=== PATIENT | male | born 1945 | race Caucasian/White ===

== ENCOUNTER 2017-04-03 19:05 | Emergency (ER) | payer OTHER ==
[2017-04-03 19:38] LABS: HEMATOCRIT 25.2 % (39.0-50.0); HEMOGLOBIN 8.5 g/dl (14.0-18.0); IMMATURE GRANULOCYTES 3.5 % (0.0-1.0); MEAN CELL VOLUME 98.4 fL CALC (80.0-100.0); MEAN CORPUSCULAR HGB 33.2 pG CALC (26.0-32.0); MEAN CORPUSCULAR HGB CONC 33.7 g/L CALC (32.0-36.0); NEUT# 12.16 thou/uL (1.82-7.42); RED BLOOD COUNT 2.56 mill/uL (4.70-6.10); RED CELL DISTRI WIDTH 16.1 % (11.5-15.5)
[2017-04-03 19:54] LABS: ALBUMIN 3.8 g/dL (3.2-5.0); BILIRUBIN, TOTAL 0.9 mg/dL (0.0-1.4); CALCIUM 8.6 mg/dL (8.4-10.2); CREATININE 3.6 mg/dL (0.7-1.3); TOTAL PROTEIN 5.5 g/dL (6.3-8.2)
[2017-04-03 21:09] LABS: URINE BILIRUBIN - DIPSTICK NEGATIVE (NEGATIVE); URINE BLOOD DIPSTICK MODERATE (NEGATIVE); URINE COLOR YELLOW; URINE GLUCOSE - DIPSTICK >=1000 mg/dL (NEGATIVE); URINE KETONE NEGATIVE (NEGATIVE); URINE LEUK ESTERASE NEGATIVE (NEGATIVE); URINE NITRITE - DIPSTICK NEGATIVE (Negative); URINE PH 5.5 (4.5-8.0); URINE PROTEIN - DIPSTICK NEGATIVE (NEG-TRACE); URINE UROBILINOGEN - DIPSTICK 0.2 E.U./dL (0.2)
[2017-04-03 21:10] LABS: URINE CLARITY CLEAR
[2017-04-03 21:12] LABS: BARBITURATES NEGATIVE (NEGATIVE); COCAINE NEGATIVE (NEGATIVE); METHADONE NEGATIVE (NEGATIVE); OXCYCODONE NEGATIVE (NEGATIVE); TETRAHYDROCANNABIONOL NEGATIVE (NEGATIVE); TRICYLIC ANTIDEPRESSANTS NEGATIVE (NEGATIVE)
[2017-04-03 21:17] LABS: URINE WBC 0-2 WBC/hpf (0-5)
[2017-04-03 21:27] LABS: INTERNATIONAL NORMALIZED RATIO 1.1 RATIO (0.7-1.3); PROTHROMBIN TIME 11.8 SECONDS (9.0-12.5)
[2017-04-03 23:01] VITALS: BP 136/66
== END 2017-04-03 23:17 | disposition short-term general hospital (02) | DRG 683 ==
LOC: ED 19:05
PROVIDERS: Emergency Medicine
PROC: 0T9B70Z Drainage of Bladder with Drainage Device, Via Natural or Artificial Opening (ICD-10-PCS; principal; 2017-04-03)
DX: N17.9 Acute kidney failure, unspecified (principal); E87.1 Hypo-osmolality and hyponatremia; M62.82 Rhabdomyolysis; E86.9 Volume depletion, unspecified; R10.84 Generalized abdominal pain; R79.89 Other specified abnormal findings of blood chemistry
CPT/HCPCS: S0164

== ENCOUNTER 2017-06-15 12:25 | Emergency (ER) | payer OTHER ==
[2017-06-15] MEDS ORDERED: TAMSULOSIN0.4 MG PO (13:07)
[2017-06-15 13:39] VITALS: BP 138/77
== END 2017-06-15 13:54 | disposition home or self-care (01) | DRG 696 ==
LOC: ED 12:25
PROC: 0T9B70Z Drainage of Bladder with Drainage Device, Via Natural or Artificial Opening (ICD-10-PCS; principal; 2017-06-15)
DX: R33.9 Retention of urine, unspecified (principal); I10 Essential (primary) hypertension; Z89.512 Acquired absence of left leg below knee

== ENCOUNTER 2020-06-13 | Emergency (ER) | payer OTHER ==
[~2020-06-13] MED LIST: TAMSULOSIN0.4 MG PO
[2020-06-13 18:52] LABS: MEAN CORPUSCULAR HGB 30.6 pG CALC (26.0-32.0); MEAN CORPUSCULAR HGB CONC 35.7 g/dL CAL (32.0-36.0); RED BLOOD COUNT 3.89 mill/uL (4.70-6.10); RED CELL DISTRI WIDTH 19.3 % (11.5-15.5)
[2020-06-13 18:59] LABS: ALBUMIN 3.1 g/dL (3.2-5.0); BILIRUBIN, TOTAL 0.9 mg/dL (0.0-1.4); BUN 46 mg/dL (8-23); LIPASE 285 u/l (23-300); SGOT/AST 38 u/l (19-48); TOTAL PROTEIN 6.3 g/dL (6.3-8.2)
[2020-06-13 19:00] LABS: HEMATOCRIT 33.3 % (39.0-50.0); HEMOGLOBIN 11.9 g/dl (14.0-18.0); IMMATURE GRANULOCYTES 3.4 % (0.0-5.0); MEAN CELL VOLUME 85.6 fL CALC (80.0-100.0); NEUT# 5.19 thou/uL (1.82-7.42)
[2020-06-13 19:10] LABS: ALKALINE PHOSPHATASE 188 u/l (38-126); ANION GAP 16 (6-22 (CALC)); BUN/CREATININE RATIO 35 (12-20 (CALC)); CARBON DIOXIDE 16 mmol/l (22-30); CHLORIDE 97 mmol/l (95-108); CREATININE 1.3 mg/dL (0.7-1.3); GFR 54 ML/MIN (>=60 (CALC)); GFR FOR AFR.AMER. > 60 ML/MIN (>=60 (CALC)); POTASSIUM 4.6 mmol/l (3.5-5.1); SODIUM 124 mmol/l (137-146)
[2020-06-13 21:26] LABS: ANION GAP 13 (6-22 (CALC)); BUN 43 mg/dL (8-23); BUN/CREATININE RATIO 35 (12-20 (CALC)); CARBON DIOXIDE 18 mmol/l (22-30); CHLORIDE 100 mmol/l (95-108); CREATININE 1.2 mg/dL (0.7-1.3); GFR 60 ML/MIN (>=60 (CALC)); GFR FOR AFR.AMER. > 60 ML/MIN (>=60 (CALC)); POTASSIUM 4.3 mmol/l (3.5-5.1); SODIUM 127 mmol/l (137-146)
[2020-06-13 22:21] LABS: URINE BILIRUBIN - DIPSTICK NEGATIVE (NEGATIVE); URINE BLOOD DIPSTICK NEGATIVE (NEGATIVE); URINE COLOR YELLOW; URINE GLUCOSE - DIPSTICK >=1000 mg/dL (NEGATIVE); URINE KETONE TRACE mg/dL (NEGATIVE); URINE LEUK ESTERASE NEGATIVE (NEGATIVE); URINE NITRITE - DIPSTICK NEGATIVE (Negative); URINE PROTEIN - DIPSTICK NEGATIVE (NEG-TRACE); URINE UROBILINOGEN - DIPSTICK 0.2 E.U./dL (0.2)
[2020-12-05] MEDS ORDERED: ASCORBIC ACD1000 MG PO (12:26)
[2020-12-05] MEDS ORDERED: ASPIRIN81 MG PO (12:27)
[2020-12-05] MEDS ORDERED: GABAPENTIN100 MG PO (12:27)
[2020-12-05] MEDS ORDERED: LIPITOR40 M1 PO (12:27)
[2020-12-05] MEDS ORDERED: KAPSPARGO SPRIN50 MG (12:28)
[2020-12-05] MEDS ORDERED: CONSTULOSE10 GM/15 M (12:28)
[2020-12-05] MEDS ORDERED: LASIX20 MG PO (12:28)
[2020-12-05] MEDS ORDERED: MULTIVITAMIN1 TA1 (12:28)
[2020-12-05] MEDS ORDERED: MELATONIN3 MG PO (12:28)
[2020-12-05] MEDS ORDERED: PROBIOTIC1 TAB PO (12:29)
[2020-12-05] MEDS ORDERED: ONDANSETRON4 MG PO (12:29)
[2020-12-05] MEDS ORDERED: NOVOLIN 70/30 INNLT SC (12:29)
[2020-12-05] MEDS ORDERED: OMEPRAZOLE DR40 MG (12:29)
[2020-12-05] MEDS ORDERED: SILDENAFIL50 MG (12:30)
[2020-12-05] MEDS ORDERED: TAMSULOSIN HCL0.4 MG PO (12:30)
== END 2020-06-14 08:00 | disposition home or self-care (01) | DRG 639 ==
PROVIDERS: Emergency Medicine; Family Medicine
DX: E11.65 Type 2 diabetes mellitus with hyperglycemia (principal); I10 Essential (primary) hypertension; Z95.1 Presence of aortocoronary bypass graft; Z95.5 Presence of coronary angioplasty implant and graft; Z89.512 Acquired absence of left leg below knee

== ENCOUNTER 2020-07-10 01:21 | Emergency (ER) | payer OTHER ==
[~2020-07-10] VITALS: Ht 175.3 cm; Wt 87.7 kg
[2020-07-10 01:57] LABS: HEMOGLOBIN 13.2 g/dl (14.0-18.0); IMMATURE GRANULOCYTES 0.6 % (0.0-5.0); MEAN CELL VOLUME 87.5 fL CALC (80.0-100.0); MEAN CORPUSCULAR HGB 28.9 pG CALC (26.0-32.0); NEUT# 4.06 thou/uL (1.82-7.42); RED BLOOD COUNT 4.57 mill/uL (4.70-6.10); RED CELL DISTRI WIDTH 16.2 % (11.5-15.5)
[2020-07-10 02:11] LABS: ALKALINE PHOSPHATASE 132 u/l (38-126); AMYLASE 56 u/l (30-110); BILIRUBIN, TOTAL 0.8 mg/dL (0.0-1.4); CHLORIDE 93 mmol/l (95-108); CREATININE 1.2 mg/dL (0.7-1.3); GFR 60 ML/MIN (>=60 (CALC)); GFR FOR AFR.AMER. > 60 ML/MIN (>=60 (CALC)); LIPASE 95 u/l (23-300); POTASSIUM 4.2 mmol/l (3.5-5.1); SGOT/AST 22 u/l (19-48); SODIUM 128 mmol/l (137-146)
[2020-07-10 02:15] LABS: ALBUMIN 4.1 g/dL (3.2-5.0); ANION GAP 14 (6-22 (CALC)); BUN 15 mg/dL (8-23); BUN/CREATININE RATIO 13 (12-20 (CALC)); CARBON DIOXIDE 25 mmol/l (22-30); TOTAL PROTEIN 7.9 g/dL (6.3-8.2)
[2020-07-10 02:20] LABS: D-DIMER 0.61 mg/L (0.19-0.60)
[2020-07-10 02:24] LABS: ACT PARTIAL THROMBO TIME 25.1 SECONDS (20.0-32.5); INTERNATIONAL NORMALIZED RATIO 1.1 RATIO (0.7-1.3); MYOGLOBIN 44 ng/mL (0 - 121); PROTHROMBIN TIME 10.7 SECONDS (9.0-12.5)
[2020-07-10] MEDS ORDERED: LORTAB5 PO (03:14)
[2020-07-10] MEDS ORDERED: VOLTAREN - GENE75 MG PO (03:14)
[2020-07-10 07:08] VITALS: BP 116/64
== END 2020-07-10 07:08 | disposition home or self-care (01) | DRG 195 ==
LOC: ED 01:21
PROVIDERS: Family Medicine
DX: R09.1 Pleurisy (principal); E11.65 Type 2 diabetes mellitus with hyperglycemia; I10 Essential (primary) hypertension; Z95.1 Presence of aortocoronary bypass graft; Z95.5 Presence of coronary angioplasty implant and graft; Z89.512 Acquired absence of left leg below knee

== ENCOUNTER 2020-07-20 20:03 | Emergency (ER) | payer OTHER ==
[~2020-07-20] VITALS: Ht 175.3 cm; Wt 87.7 kg
[~2020-07-20 20:03] MED LIST changes: +LORTAB5 PO; +VOLTAREN - GENE75 MG PO
[2020-07-20 20:39] LABS: HEMATOCRIT 36.9 % (39.0-50.0); HEMOGLOBIN 11.7 g/dl (14.0-18.0); IMMATURE GRANULOCYTES 2.9 % (0.0-5.0); MEAN CELL VOLUME 88.9 fL CALC (80.0-100.0); MEAN CORPUSCULAR HGB 28.2 pG CALC (26.0-32.0); MEAN CORPUSCULAR HGB CONC 31.7 g/dL CAL (32.0-36.0); NEUT# 7.77 thou/uL (1.82-7.42); RED BLOOD COUNT 4.15 mill/uL (4.70-6.10); RED CELL DISTRI WIDTH 15.2 % (11.5-15.5)
[2020-07-20 20:55] LABS: INTERNATIONAL NORMALIZED RATIO 1.1 RATIO (0.7-1.3); PROTHROMBIN TIME 11.3 SECONDS (9.0-12.5)
[2020-07-20 20:57] LABS: ALBUMIN 3.4 g/dL (3.2-5.0); ALKALINE PHOSPHATASE 157 u/l (38-126); ANION GAP 15 (6-22 (CALC)); BUN 26 mg/dL (8-23); BUN/CREATININE RATIO 19 (12-20 (CALC)); CARBON DIOXIDE 20 mmol/l (22-30); CHLORIDE 97 mmol/l (95-108); CREATININE 1.4 mg/dL (0.7-1.3); GFR 50 ML/MIN (>=60 (CALC)); GFR FOR AFR.AMER. 60 ML/MIN (>=60 (CALC)); SGOT/AST 29 u/l (19-48); SODIUM 127 mmol/l (137-146)
[2020-07-20 21:01] LABS: BILIRUBIN, TOTAL 0.4 mg/dL (0.0-1.4)
[2020-07-20 21:10] LABS: MYOGLOBIN 40 ng/mL (0 - 121)
[2020-07-20 22:47] VITALS: BP 142/68
== END 2020-07-20 22:41 | disposition short-term general hospital (02) | DRG 948 ==
LOC: ED 20:03
PROVIDERS: Family Medicine
DX: R41.82 Altered mental status, unspecified (principal); E11.65 Type 2 diabetes mellitus with hyperglycemia; I10 Essential (primary) hypertension; Z95.1 Presence of aortocoronary bypass graft; Z95.5 Presence of coronary angioplasty implant and graft; Z89.512 Acquired absence of left leg below knee

== ENCOUNTER 2020-10-28 20:55 | Inpatient (IN) | payer OTHER, MEDICARE ==
[~2020-10-28] VITALS: Ht 175.3 cm; Wt 86.0 kg
--- NOTE | 2020-10-28 20:55 | NUR ---
PT TO ER BED 8 VIA EMS AT THIS TIME FOR TRIAGE AND EXAM.
--- NOTE | 2020-10-28 21:00 | NUR ---
PT. WITH C/O HAVING UPPER ABD. PAIN X 2 DAYS. PT. DIAPHORETIC. ABD. SOFT WITH HYPOACTIVE BOWEL SOUNDS.
--- NOTE | 2020-10-28 22:00 | NUR ---
PT. GIVEN IV PAIN MEDS PER MD WITH SLIGHT RELIEF.
[2020-10-28 22:33] LABS: ALBUMIN 3.8 g/dL (3.2-5.0); CREATININE 1.8 mg/dL (0.7-1.3); POTASSIUM 4.7 mmol/l (3.5-5.1); TOTAL PROTEIN 7.8 g/dL (6.3-8.2)
[2020-10-28 22:35] LABS: BILIRUBIN, TOTAL 0.7 mg/dL (0.0-1.4)
--- NOTE | 2020-10-28 22:42 | NUR ---
PT. RESP. 46 BP 89/50 HR 137, AWARE.
[2020-10-28 22:43] LABS: HEMATOCRIT 48.9 % (39.0-50.0); HEMOGLOBIN 14.1 g/dl (14.0-18.0); IMMATURE GRANULOCYTES 2.3 % (0.0-5.0); MANUAL DIFFERENTIAL YES; MEAN CELL VOLUME 85.9 fL CALC (80.0-100.0); MEAN CORPUSCULAR HGB 24.8 pG CALC (26.0-32.0); MEAN CORPUSCULAR HGB CONC 28.8 g/dL CAL (32.0-36.0); PLATELET COUNT 653 thou/uL (130-400); RED BLOOD COUNT 5.69 mill/uL (4.70-6.10); RED CELL DISTRI WIDTH 18.1 % (11.5-15.5)
[2020-10-28 22:48] LABS: BAND 5 % (0-8); PLATELET ESTIMATE MARKED INCREASE
--- NOTE | 2020-10-28 23:00 | NUR ---
ATTEMPTED TO INSERT CENTRAL LINE WITHOUT SUCCESS. PT. TOLERATED WELL. 2 ND PERIPHERAL IV SITE STARTED TO LAC, IVF 2ND BAG STARTED. MYERS CATH INSERTED, PT. TOLERATED WELL, PATIENT AND DRAINING CLEAR BECKY URINE,
[2020-10-29] VITALS (15 sets, daily range): BP systolic 83–118; BP diastolic 55–71
--- NOTE | 2020-10-29 00:36 | NUR ---
V/S NOW STABLE HR 111 RESP 26 BP 105/57 O2 SAT 94% ON 2 LIT/NC. MD AWARE.
--- NOTE | 2020-10-29 00:57 | NUR ---
PT. MADE AWARE THAT HE WILL BE GOING TO THE OR THIS AM. VERBALIZED UNDERSTANDING. PT. CEDRIC CALLED AND INFORMED THAT HE WILL BE GOING TO THE OR THIS AM, VERBALIZED UNDERSTANDING.
[2020-10-29 01:04] LABS: URINE BILIRUBIN - DIPSTICK NEGATIVE (NEGATIVE); URINE BLOOD DIPSTICK SMALL (NEGATIVE); URINE COLOR YELLOW; URINE GLUCOSE - DIPSTICK NEGATIVE (NEGATIVE); URINE KETONE NEGATIVE (NEGATIVE); URINE LEUK ESTERASE NEGATIVE (NEGATIVE); URINE PROTEIN - DIPSTICK TRACE mg/dL (NEG-TRACE); URINE SPECIFIC GRAVITY 1.015; URINE UROBILINOGEN - DIPSTICK 0.2 E.U./dL (0.2)
[2020-10-29 01:05] LABS: URINE NITRITE - DIPSTICK NEGATIVE (Negative)
[2020-10-29 01:13] LABS: URINE BACTERIA FEW hpf; URINE SQUAMOUS EPITHELIAL CELL FEW EPI/hpf (0-FEW); URINE WBC 0-2 WBC/hpf (0-5)
--- NOTE | 2020-10-29 01:51 | NUR ---
PT. TAKEN TO OR VIA STRETCHER, NO C/O PAIN OR DISCOMFORT OFFERED.
--- NOTE | 2020-10-29 05:30 | NUR ---
PT RECEIVED FROM PACU AT THIS TIME. REPORT RECEIVED AT BEDSIDE FROM PACU NURSE ASHLEEN. Aide FLORES VP DESIGN IN ROOM SETTING UP VENT.
--- NOTE | 2020-10-29 06:42 | NUR ---
PT PLACED ON SBT PER PT ON NO SEDATION AT THIS TIME. ALL MECHANICS ON SBT ARE WNL. ALL RESPIRATORY MEASURMENTS ARE WNL. TRAVEL PROFESSIONAL TO MONITOR.
--- NOTE | 2020-10-29 07:00 | NUR ---
ASSUMED CARE OF PT DURING BEDSIDE REPORT, PT HYPOTENSIVE, AND INTUBATED. [address], PT ON VS MONITOR, SCD ON RIGHT LEG, LEFT BKA, ABDOMINAL BINDER IN PLACE OVER SURGICAL SITE, MEDS INFUSING INTO L TRIPLE LUMAN. YEMI TITRATED TO 2.5MCS/KG/HR FOR HYPOTENSION. PT PLACE ON SBT BY RT, PT HAS NO SEDATION INFUSING.
[2020-10-29] MEDS ORDERED: OXYCODONE5 M1 PO (08:23)
--- NOTE | 2020-10-29 09:20 | NUR ---
PT EXTUBATED PER MD ORDER, NO DISTRESS NOTED, PT TOLERATING NC WELL.
--- NOTE | 2020-10-29 09:43 | NUR ---
0920 EXTUBATED PT PER MD ORDER. PLACED ON 10 L HFNC. PT TO LWEL AT THIST [facility]. APPLICATION SECURITY CONSULTANT TO MONITOR.
[2020-10-29 09:53] LABS: HEMATOCRIT 39.1 % (39.0-50.0); IMMATURE GRANULOCYTES 2.9 % (0.0-5.0); MEAN CELL VOLUME 89.5 fL CALC (80.0-100.0); MEAN CORPUSCULAR HGB 25.2 pG CALC (26.0-32.0); MEAN CORPUSCULAR HGB CONC 28.1 g/dL CAL (32.0-36.0); PLATELET COUNT 381 thou/uL (130-400); RED BLOOD COUNT 4.37 mill/uL (4.70-6.10)
[2020-10-29 09:54] LABS: BAND 25 % (0-8); MANUAL DIFFERENTIAL YES
[2020-10-29 09:55] LABS: VACULATED NEUTROPHILS MARKED
[2020-10-29 10:08] LABS: AMYLASE 42 u/l (30-110); BUN 32 mg/dL (8-23); BUN/CREATININE RATIO 24 (12-20 (CALC)); CARBON DIOXIDE 12 mmol/l (22-30); CREATININE 1.3 mg/dL (0.7-1.3); GFR 54 ML/MIN (>=60 (CALC)); GFR FOR AFR.AMER. > 60 ML/MIN (>=60 (CALC)); LIPASE 20 u/l (23-300); MAGNESIUM 1.8 mg/dL (1.6-2.3); POTASSIUM 4.7 mmol/l (3.5-5.1); SODIUM 131 mmol/l (137-146)
[2020-10-29 10:10] LABS: ALBUMIN 1.8 g/dL (3.2-5.0); ALKALINE PHOSPHATASE 158 u/l (38-126); ANION GAP 15 (6-22 (CALC)); BILIRUBIN, TOTAL 0.4 mg/dL (0.0-1.4); CHLORIDE 109 mmol/l (95-108); SGOT/AST 169 u/l (19-48); TOTAL PROTEIN 4.3 g/dL (6.3-8.2)
--- NOTE | 2020-10-29 12:00 | NUR ---
PT LEVO TITRATED TO 20MCG/MIN, YEMI TIRATED OFF PER MD. PT A AND OX3, MEDICATED PER EMAR FOR PAIN. PT STATES HAVING SEEDS PLACED FOR LIVER CA AT [facility] IN [place] BY IN [place].
--- NOTE | 2020-10-29 14:35 | NUR ---
PT IS A 74 YOM WHO PRESENTS WITH PERITONITIS AND PERFORATED ABDOMINAL VISCUS. HE IS UNABLE TO PROVIDE PMH OR LIST OF HOME MEDS, BUT CURRENT INPATIENT MEDS HAVE BEEN REVIEWED. SCR 1.8 MG/DL, CRCL 42.5 ML/MIN, HT 69 IN, WT 81 KG VANCOMYCIN ORDERED FOR PHARMACY TO DOSE. START VANCOMYCIN 1250MG IV Q24H. CHECK TROUGH 30 MIN PRIOR TO 4TH DOSE ON 11/01 @ 0830. PHARMACY WILL CONTINUE TO FOLLOW AND ADVISE NEEDED.
[2020-10-29] MEDS ORDERED: LISINOPRIL10 MG PO (14:42)
[2020-10-29] MEDS ORDERED: NORVASC5 M1 PO (14:43)
[2020-10-29] MEDS ORDERED: TAMSULOSIN0.4 MG PO (14:43)
[2020-10-29] MEDS ORDERED: NOVOLIN 70/30 SC (14:44)
--- NOTE | 2020-10-29 17:43 | NUR ---
UPDATED PT STEP DAUGHTER FROM [place] WHO PROVIDED CODE
--- NOTE | 2020-10-29 18:45 | NUR ---
JUICE DRAIN 1 DRAINING DARK BROWN LIQUID JUICE DRAIN 2 DRAINING DARK YELLOW FLUID JUICE DRAIN 3 DRAINING DARK YELLOW FLUID AMOUNTS OUT IN I AND O
--- NOTE | 2020-10-29 19:00 | NUR ---
REPORT RECEIVED FROM Abbey COTA RN, CARE OF PT ASSUMED AT THIS TIME.
--- NOTE | 2020-10-29 19:45 | NUR ---
PT LAYING IN BED SEMI-FOWLERS. A/OX3 AND DROWSY. L-IJ TLC INFUSING LEVOPHED, D51/2NS. DRESSING C/D/I. PATENT. POSITIVE BLOOD RETURN. L-AIXA ODONNELL-JIM NGT SECURE, CONNECTED TO LIS. DARK BROWN GASTRIC CONTENT NOTED. OUTPUT MINIMAL. NSR 90S AFEBRILE SPO2 93% RESPIRATIONS REGULAR AND UNLABORED. ABD BINDER SECURED. X3 JUICE DRAINS. JPs EMPTIED. JUICE #1 200ML DARK BROWN THIN LIQUID, SUSPECT IODINE FROM IRRIGATION. JUICE#2 100ML SEROUS, PINK TINGED. JUICE#3 50ML SEROUS, PINK TINGED. RLE SCD, L BKA. PLAN OF CARE REVIEWED. PT VERBALIZES UNDERSTANDING DENIES QUESTIONS. DENIES NEEDS AT THIS TIME. CALL HAQ WITHIN REACH, AGREES TO CALL PRN.
--- NOTE | 2020-10-29 20:10 | NUR ---
blood drawn & sent to lab.
--- NOTE | 2020-10-29 20:10 | NUR ---
LACTIC ACID LEVEL DRAWN VIA TLC BY Osmar PARIKH LPN.
--- NOTE | 2020-10-29 20:51 | NUR ---
LACTIC LEVEL RESULTS CALLED TO UNIT BY Maira DOUGHERTY IN LAB. LEVEL IS 4.4. PREVIOUS LEVEL WAS 4.
--- NOTE | 2020-10-29 21:32 | NUR ---
DR. GALDAMEZ MADE AWARE OF MOST RECENT LACTIC LEVEL OF 4.4. REPEAT LACTIC IN AM. NO FURTHER ORDERS RECEIVED.
--- NOTE | 2020-10-29 21:46 | NUR ---
CALL RECEIVED FROM INDIVIDUAL WHO IDENTIFIES SELF PT'S . CALLER PROVIDES CORRECT COMMUNICATION CODE. UPDATE ON PT'S STATUS PROVIDED. QUESTIONS ANSWERED TO CALLERS SATISFACTION.
[2020-10-30] VITALS (22 sets, daily range): BP systolic 85–139; BP diastolic 51–82
--- NOTE | 2020-10-30 | NUR ---
PT APPEARS TO BE SLEEPING COMFORTABLY. NO APPARENT DISTRESS. VSS ON MONITOR. CALL HAQ REMAINS WITHIN REACH.
--- NOTE | 2020-10-30 02:00 | NUR ---
PT APPEARS TO BE SLEEPING COMFORTABLY. NO APPARENT DISTRESS. VSS ON MONITOR. CALL HAQ REMAINS WITHIN REACH.
--- NOTE | 2020-10-30 04:00 | NUR ---
PT APPEARS TO BE SLEEPING COMFORTABLY. NO APPARENT DISTRESS. VSS ON MONITOR. CALL HAQ REMAINS WITHIN REACH.
--- NOTE | 2020-10-30 05:00 | NUR ---
AM LABS COLLECTED VIA TLC.
--- NOTE | 2020-10-30 05:30 | NUR ---
PT COOL TO TOUCH. SHIVERING. ORAL TEMP 96. TEE HUGGER APPLIED.
[2020-10-30 05:42] LABS: ALBUMIN 1.7 g/dL (3.2-5.0); ALKALINE PHOSPHATASE 166 u/l (38-126); BUN 27 mg/dL (8-23); BUN/CREATININE RATIO 21 (12-20 (CALC)); CHLORIDE 108 mmol/l (95-108); CREATININE 1.3 mg/dL (0.7-1.3); GFR 54 ML/MIN (>=60 (CALC)); GFR FOR AFR.AMER. > 60 ML/MIN (>=60 (CALC)); MAGNESIUM 1.9 mg/dL (1.6-2.3); POTASSIUM 4.7 mmol/l (3.5-5.1); SGOT/AST 263 u/l (19-48); SODIUM 130 mmol/l (137-146)
[2020-10-30 05:50] LABS: ANION GAP 12 (6-22 (CALC)); BILIRUBIN, TOTAL 0.2 mg/dL (0.0-1.4); CARBON DIOXIDE 15 mmol/l (22-30)
[2020-10-30 05:51] LABS: HEMATOCRIT 34.2 % (39.0-50.0); HEMOGLOBIN 10.1 g/dl (14.0-18.0); IMMATURE GRANULOCYTES 1.4 % (0.0-5.0); MEAN CELL VOLUME 86.1 fL CALC (80.0-100.0); MEAN CORPUSCULAR HGB 25.4 pG CALC (26.0-32.0); MEAN CORPUSCULAR HGB CONC 29.5 g/dL CAL (32.0-36.0); NEUT# 18.41 thou/uL (1.82-7.42); RED BLOOD COUNT 3.97 mill/uL (4.70-6.10)
--- NOTE | 2020-10-30 06:12 | NUR ---
JUICE #1 150ML BROWN THIN OUTPUT, SUSPECT IODINE MIXED WITH BLOOD. JUICE #2 100ML YELLOW, PINK TINGED JUICE #3 35ML YELLOW, PINK TINGED NGT 50ML DARK BROWN OUTPUT MYERS 50ML YELLOW WITH SEDIMENT.
--- NOTE | 2020-10-30 06:15 | NUR ---
PT C/O OF BEING TO WARM. OFFER TO REDUCE TEMP ON TEE HUGGER. PT REQUEST IT BE TURNED OFF. TEE HUGGER TURNED OFF AT THISTIME.
--- NOTE | 2020-10-30 06:43 | NUR ---
PT IS ON 3 LITER NASAL CANNULA WITH SATS OF 94%.
--- NOTE | 2020-10-30 07:20 | NUR ---
pt awake in bed; no apparent distress noted; assessment completed at this time; pt alert and oriented; admits to pain rating 7/10; will medicate; no n/v noted per commercial insurance underwriter; resp even and unlabored; lungs clear; skin color wnl; o2 per nc at 4L; prod cough noted; pt self suctioning with yankeur; hr reg; weak right pedal pulses; left bka; skin color pale; st on monitor; abd soft with bs present; no bm noted per commercial insurance underwriter; zafar to gravity draining clear dk yellow urine; ng tube intact to right nare to lcs; brown gastric output noted; cath strap intact; #20 to lac saline locked; TLC patent to left subclav with ivf/ levophed gtt at 20mcg/min; no redness or edema noted at sites; abd dressing cdi; unable to assess wound; JUICE x 2 left abd, JUICE x1 right abd; JPs stripped and drained; JUICE drain #1 with brownish/orangee/red drainage; JUICE #2 and # with clouldy serosang; abd binder reapplied; scds to rle; repositioned; call light within reach; will continue to monitor
--- NOTE | 2020-10-30 08:15 | NUR ---
resting in bed with eyes closed; no apparent distress noted; st on monitor; call light within reach; will continue to monitor
--- NOTE | 2020-10-30 09:00 | NUR ---
Dr Peña present at bedside to assess pt and discuss plan of care
--- NOTE | 2020-10-30 10:02 | NUR ---
resting in bed with eyes closed; no apparent distress noted; iv intact and patent; sr on monitor; zafar to gravity; call light within reach; will continue to monitor
--- NOTE | 2020-10-30 10:19 | NUR ---
PT REMAINS ON 3 LITER NC, WITH SATS MAINTAINING AT 94%.
--- NOTE | 2020-10-30 10:59 | NUR ---
spouse called this advertising copy writer; passcode verified; update provided
--- NOTE | 2020-10-30 12:03 | NUR ---
resting in bed with eyes closed; no apparent distress noted; pt with complaints of pain; will medicate; zafar to gravity; iv intact; levophed gtt at 20mcg/min; sr on monitor; dressing changed to TLC site; will continue to monitor
--- NOTE | 2020-10-30 12:08 | NUR ---
CENTRAL LINE DRESSING CHANGED USING ASEPTIC TECHNIQUE. PT TOLERATED WELL. DRESSING INITIALED, DATED AND TIMED. NO OTHER NEEDS AT THIS TIME. CALL LIGHT WITHIN REACH.
--- NOTE | 2020-10-30 12:40 | NUR ---
DR SWIFT AT BEDSIDE DISCUSSING POC
--- NOTE | 2020-10-30 14:10 | NUR ---
resting with eyes closed; no apparent distress noted; sron monitor; zafar to gravity; levophed continue; call light within reach; will continue to monitor
--- NOTE | 2020-10-30 16:15 | NUR ---
awake in bed; tolerating ice chips; JPs stripped and drained; pt to be medicated for complaints of pain; abd dressing cdi; abd binder reinforced; levophed gtt cont at 20mcg/min; zafar to gravity; will continue to monitor
--- NOTE | 2020-10-30 17:58 | NUR ---
awake in bed; repositioned; no apparent distress noted noted; zafar to gravity; sr on monitor; o2 per nc; call light within reach
--- NOTE | 2020-10-30 19:45 | NUR ---
awakens easily then c/o op pain. abd dressing cdi. abd binder conts. alexandru x3 in place. playground monitor shows sinus tach 101. ivf cont to tlc. zafar cath in place. urine clear yellow. scds cont. turned & repositioned with MUCH encouragement. sx self. fall precautions cont. medicated for pain as ordered.
--- NOTE | 2020-10-30 22:00 | NUR ---
turned & repositioned. anamaria fair. cardiac monitor technician shows sinus tach 110.
[2020-10-31] VITALS (51 sets, daily range): BP systolic 95–161; BP diastolic 60–90
--- NOTE | 2020-10-31 00:16 | NUR ---
eyes closed. no apparent distress. ivf infusing well.
--- NOTE | 2020-10-31 02:00 | NUR ---
resting quietly. no apparent distress.
--- NOTE | 2020-10-31 04:00 | NUR ---
eyes closed. no distress.
--- NOTE | 2020-10-31 05:15 | NUR ---
medicated for pain as ordered. needs MUCH encouragement to assist with care.
[2020-10-31 06:02] LABS: HEMATOCRIT 31.8 % (39.0-50.0); HEMOGLOBIN 9.3 g/dl (14.0-18.0); MEAN CELL VOLUME 88.1 fL CALC (80.0-100.0); MEAN CORPUSCULAR HGB 25.8 pG CALC (26.0-32.0); MEAN CORPUSCULAR HGB CONC 29.2 g/dL CAL (32.0-36.0); NEUT# 12.72 thou/uL (1.82-7.42); RED BLOOD COUNT 3.61 mill/uL (4.70-6.10)
[2020-10-31 06:22] LABS: ALBUMIN 1.6 g/dL (3.2-5.0); ALKALINE PHOSPHATASE 162 u/l (38-126); ANION GAP 10 (6-22 (CALC)); BUN 25 mg/dL (8-23); BUN/CREATININE RATIO 21 (12-20 (CALC)); CARBON DIOXIDE 14 mmol/l (22-30); CHLORIDE 111 mmol/l (95-108); CREATININE 1.2 mg/dL (0.7-1.3); GFR 60 ML/MIN (>=60 (CALC)); GFR FOR AFR.AMER. > 60 ML/MIN (>=60 (CALC)); MAGNESIUM 1.8 mg/dL (1.6-2.3); POTASSIUM 4.5 mmol/l (3.5-5.1); SGOT/AST 89 u/l (19-48); SODIUM 131 mmol/l (137-146)
[2020-10-31 06:29] LABS: BILIRUBIN, TOTAL 0.3 mg/dL (0.0-1.4)
--- NOTE | 2020-10-31 07:05 | NUR ---
REPORT RECEIVED FROM JOZEFRN
--- NOTE | 2020-10-31 08:09 | NUR ---
PT ON 3 LITER NASAL CANNULA, SATS 94%
--- NOTE | 2020-10-31 08:29 | NUR ---
AT BEDSIDE DISCUSSING POC.
--- NOTE | 2020-10-31 08:40 | NUR ---
PT RESTING IN SUPINE POSITION,A&O X3;VS OBTAINED AND ASSESSMENT COMPLETED;PT DENIES ANY CURRENT PAIN OR DISCOMFORTS,PAIN SCALE AND REPORTING EDUCATED;PT POD #2;RESPIRATIONS EVEN AND UNLABORED ON O2 @ 4L VIA NC,CLEAR/DIMINISHED LUNG SOUNDS;ABDOMEN DISTENDED/SOFT ON PALPATION AND HYPOACTIVE IN ALL 4 QUADRANTS;DRESSING TO MIDLINE INCISIONS CDI WITH X3 JUICE DRAINS NOTED AND ABDOMINAL BINDER IN PLACE;LEFT TRIPLE LUMEN INFUSING NS @ 150ML/HR AND LEVOPHED @ 75CC/HR;WEAK PEDAL PULSE, PT LEFT BKA; SCD NOTED TO RIGHT LEG;ACCUCHECK 151;NPO DIET WITH ICE CHIPS PROVIDED;PT DENIES ANY ADDITIONAL NEEDS AND IS ENCOURAGED TO CALL FOR ASSISTANCE IF NEEDED;FALL PRECAUTIONS IN PLACE WITH BED IN THE LOWEST POSITION AND CALL LIGHT IN REACH;WILL CONTINUE TO MONITOR
--- NOTE | 2020-10-31 08:51 | NUR ---
AT BEDSIDE DISCUSSING POC.
--- NOTE | 2020-10-31 10:40 | NUR ---
PT RESTING IN SEMI FOWLERS POSITION;RESPIRATIONS EVEN AND UNLABORED ON O2 @ 3L VIA NC;PT REPORTS ABDOMINAL PAIN RATING 9/10 ON THE PAIN SCALE AND REQUESTS PRN PAIN MEDICATION, PT MEDICATED WITH PRN DILAUDID 1MG SLOW IVP;PT BP 158/81 AND LEVOPHED TITRATED AT THIS TIME, VS REMAINS Q15 MINS PER PROTOCAL;CARDIAC MONITORING IN PLACE;PT DENIES ANY ADDITIONAL NEEDS;ENCOURAGED TO CALL FOR ASSISTANCE IF NEEDED;CALL LIGHT IN REACH;WILL CONTINUE TO MONITOR
--- NOTE | 2020-10-31 12:00 | NUR ---
PT RESTING IN SEMI FOWLERS POSITION RECEIVING BED BATH FROM LOFTSMAN;RESPIRATIONS EVEN AND UNLABORED ON O2 @ 3L VIA NC;ABDOMINAL BINDER AND DRESSINGS REMAIN IN PLACE;JUICE X3 EMPTIED AT THIS TIME;MYERS CATHETER IN PLACE;LEFT TL INFUSING NS AND LEVOPHED WITH EASE;PT TO BE RE-POSITIONED INTO RECLINER;ACCUCHECK 177, PT COVERED WITH SLIDING SCALE INSULIN PER ORDER;PT DENIES ANY ADDITIONAL NEEDS;CALL LIGHT IN REACH;WILL CONTINUE TO MONITOR
--- NOTE | 2020-10-31 12:46 | NUR ---
LEVOPHED GTT TITRATED TO 17MCG/MIN,WILL CONTINUE TO MONITOR
--- NOTE | 2020-10-31 15:00 | NUR ---
PT OOB RESTING IN RECLINER;PT REPORTS ABDOMINAL PAIN RATING 9/10 ON THE PAIN SCALE AT AND REQUESTS PRN PAIN MEDICATION,PT MEDICATED WITH PRN DILAUDID 1MG SLOW IVP;CARDIAC MONITORING IN PLACE;NS D/C PER ORDER;TPN AND LIPIDS STARTED PER ORDER TO LEFT SUBCLAVIAN;LEVO DRIP GTT TITRATED TO 15MCG/MIN;PT DENIES ANY ADDITIONAL NEEDS AND IS ENCOURAGED TO CALL FOR ASSISTANCE IF NEEDED;CALL LIGHT IN REACH;WILL CONTINUE TO MONITOR
--- NOTE | 2020-10-31 16:20 | NUR ---
PT RE-POSIITONED BACK INT BED WITH X2 ASSIST;RESPIRATIONS REMAIN EVEN AND UNLABORED ON O2 @ 3L VIA NC;ABDOMINAL BINDER AND DRESSINGS IN PLACE;X3 JUICE DRAINS PATENT;MYERS CATHETER DRAINING TO GRAVITY WITH EASE;LEFT TL INFUSING TPN, LIPIDS AND LEVO PER ORDER;PT DENIES ANY ADDITIONAL NEEDS;ENCOURAGED TO CALL FOR ASSISTANCE IF NEEDED;CALL LIGHT IN REACH;WILL CONTINUE TO MONITOR
--- NOTE | 2020-10-31 17:50 | NUR ---
PT RESTING IN SEMI FOWLERS POSITION;RESPIRATIONS EVEN AND UNLABORED ON O2 @ 3L VIA NC;PT REPORTS ABDOMINAL PAIN RATING 10/10 ON THE PAIN SCALE, PT MEDICATED WITH PRN DILAUDID 1MG SLOW IVP;ACCUCHECK 284, PT COVERED WITH SLIDING SCALE INSULIN PER ORDER;MYERS CATHETER REMAINS PATENT DRAINING TO GRACITY WITH EASE;LEFT SUBCLAVIAN TL INFUSING TPN @ 84.0, LIPIDS @ 21.0, AND LEVO AT 9MCG/MIN;X3 JUICE DRAINS EMPTIED AT THIS TIME, INCISIONAL SITE WELL APPROX WITH CDI DRESSING; PT ENCOURAGED TO CALL FOR ASSISTANCE IF NEEDED;CALL LIGHT IN REACH;WILL CONTINUE TO MONITOR
--- NOTE | 2020-10-31 19:10 | NUR ---
REPORT GIVEN BY AMIE. PATIENT IS ALERT AND OREINTED X 4. RESP EVEN AND UNLABORED, 3L O2 VIA NC. L SUBCLAVIAN TLC INFUSING LEVO, TPN, AND LIPIDS. MYERS DRAINING CLEAR, YELLOW URINE. MIDLINE INCISION CDI, 3 JUICE DRAININS PRESENT AND ABD BINDER. DIET NPO WITH ICE CHIPS. PLAN OF CARE DISCUSSED. PATIENT INFORMED TO CALL WITH ANY QUESTIONS OR CONCERNS. FALL AND SAFTEY PRECAUTIONS IN PLACE.
--- NOTE | 2020-10-31 20:45 | NUR ---
LEVOPHED TITRATED FROM 7 MCG TO 5 MCG FOR SBP 161
--- NOTE | 2020-10-31 21:26 | NUR ---
LEVOPHED TITRATED FROM 5 MCG/MIN TO 3 MCG/MIN FOR BP OF 149/80
--- NOTE | 2020-10-31 22:44 | NUR ---
PATIENT REMOVED CPAP, HE STATES HE DOESN'T KNOW WHY
--- NOTE | 2020-10-31 22:45 | NUR ---
PATIENT RESTING WITH EYES LOSED. RESP EVEN AND UNLABORED. NO S/S OF DISTRESS NOTED. FALL AND SAFTEY PRECAUTIONS IN PLACE.
[2020-11-01] VITALS (20 sets, daily range): BP systolic 98–148; BP diastolic 7–81
--- NOTE | 2020-11-01 00:44 | NUR ---
PATIENT REQUESTING PAIN MEDICATIONS, MEDICATED PER MD ORDERS.
--- NOTE | 2020-11-01 01:51 | NUR ---
NEW BAG OF TPN HUNG
--- NOTE | 2020-11-01 03:08 | NUR ---
PATIENT REQUESTING PAIN MEDICATION, MEDICATED PER MD ORDERS
--- NOTE | 2020-11-01 04:45 | NUR ---
LEVOPHED TITRATED FROM 3 MCG/MIN TO 2 MCG/MIN FOR BP 143/70
[2020-11-01 05:35] LABS: HEMATOCRIT 30.6 % (39.0-50.0); HEMOGLOBIN 8.9 g/dl (14.0-18.0); IMMATURE GRANULOCYTES 0.8 % (0.0-5.0); MEAN CELL VOLUME 86.7 fL CALC (80.0-100.0); MEAN CORPUSCULAR HGB 25.2 pG CALC (26.0-32.0); MEAN CORPUSCULAR HGB CONC 29.1 g/dL CAL (32.0-36.0); NEUT# 4.95 thou/uL (1.82-7.42); RED BLOOD COUNT 3.53 mill/uL (4.70-6.10); RED CELL DISTRI WIDTH 17.1 % (11.5-15.5)
--- NOTE | 2020-11-01 05:45 | NUR ---
LEVOPHED TURNED OFF DUE TO BP 138/77
[2020-11-01 05:54] LABS: ANION GAP 9 (6-22 (CALC)); BUN 24 mg/dL (8-23); BUN/CREATININE RATIO 20 (12-20 (CALC)); CHLORIDE 108 mmol/l (95-108); CREATININE 1.2 mg/dL (0.7-1.3); GFR 60 ML/MIN (>=60 (CALC)); GFR FOR AFR.AMER. > 60 ML/MIN (>=60 (CALC)); MAGNESIUM 1.8 mg/dL (1.6-2.3); POTASSIUM 4.1 mmol/l (3.5-5.1); SODIUM 130 mmol/l (137-146)
[2020-11-01 06:02] LABS: CARBON DIOXIDE 17 mmol/l (22-30)
--- NOTE | 2020-11-01 06:19 | NUR ---
JP1:30ML, JP2:20ML, AND JP3:35ML OF OUTPUT
--- NOTE | 2020-11-01 06:45 | NUR ---
REPORT RECEIVED [facility] SUPERVISOR RN. CARE ASSUMED.
--- NOTE | 2020-11-01 07:45 | NUR ---
PATIENT RESTING IN BED AWAKE. PATIENT IS ALERT AND ORIENTED X3. SHIFT ASSESSMENT COMPLETED AT THIS TIME. IV PATENT X1. O2 REMOVED AT THIS TIME. ID BANDS REMOVED AND REGISTRATION NOTIFIED DUE TO ARM SWELLING. PATIENT REPOSITIONED IN BED. PATIENT STATES THAT HE HIS HAVING 10/10 PAIN. PATIENT MEDICATED PER MAR. TPN INFUSING WITHOUT DIFFICULTY. CALL LIGHT IN REACH. WILL CONTINUE TO MONITOR.
--- NOTE | 2020-11-01 08:38 | NUR ---
DR SWIFT AT BEDSIDE AT THIS TIME. LAB AT BEDSIDE AT THIS TIME WELL.
--- NOTE | 2020-11-01 09:20 | NUR ---
DR SALAMANCA AT BEDSIDE AT THIS TIME. PLAN OF CARE DISCUSSED AT THIS TIME. NEW ORDERS RECEIVED.
--- NOTE | 2020-11-01 09:35 | NUR ---
SPOUSE PHONED FOR UPDATE. PASSCODE VERIFIED AND UPDATE GIVEN.
--- NOTE | 2020-11-01 10:00 | NUR ---
DRESSING CHANGED AT THIS TIME. MIDLINE INCISION. EDGES WELL APROXIMATED. 27 ESTELLA. NO REDNESS NOTED. COVERED WITH ABD PAD AND SECURED WITH TAPE.
--- NOTE | 2020-11-01 12:00 | NUR ---
PATIENT RESTING IN BED WITH EYES CLOSED. RESP ARE EVEN AND UNLABORED. NO DISTRESS NOTED. CALL LIGHT IN REACH. WILL CONTINUE TO MONITOR.
--- NOTE | 2020-11-01 13:15 | NUR ---
PATIENT REQUESTING PAIN MEDICATION AT THIS TIME. PATIENT MEDICATED PER FOR PAIN. WILL CONTINUE TO MONITOR.
--- NOTE | 2020-11-01 14:45 | NUR ---
PHONED FOR TRANSFER TO MED SURG. PT TO GO TO ROOM 280.
--- NOTE | 2020-11-01 15:51 | NUR ---
REPORT CALLED TO AYDEN KABAArlene.
--- NOTE | 2020-11-01 16:30 | NUR ---
PATIENT TO [facility] VIA BED PATIENT TOLERATED TRANSFER WELL.
--- NOTE | 2020-11-01 16:45 | NUR ---
PT ARRIVED TO FLOOR VIA BED BY [facility] ICU NURSE. BEDSIDE REPORT RECEEIVED. PT ON TPN, CURRENTLY RUNNING. PT STATED HE IS IN PAIN, WILL MEDICATE AND CONTINUE TO MONITOR.
--- NOTE | 2020-11-01 20:00 | NUR ---
PHYSICAL ASSESMENT COMPLETE. PT CURRENTLY DENIES PAIN OR DISCOMFORT. SCHEDULED MEDICATIONS AND PRN MEDICATION ADMINISTERED, SEE E-MAR. PT DENIES ANY NEEDS AT THIS TIME. PLAN OF CARE REVIEWED, PT DENIES QUESTIONS, VERBALIZES UNDERSTANDING. ITEMS WITHIN REACH, BED LOCKED IN LOW POSITION W/ BEDRAILS UP X2. CALL HAQ WITHIN REACH, AGREES TO CALL PRN.
--- NOTE | 2020-11-01 23:54 | NUR ---
PT LAYING IN BED WITH EYES CLOSED, APPEARS TO BE SLEEPING, APPEARS COMFORTABLE AND IN NO DISTRESS. RESPIRATIONS REGULAR AND UNLABORED. ITEMS REMAIN WITHIN REACH, CALL HAQ REMAINS WITHIN REACH. BED REMAINS LOCKED AND IN LOW POSITION WITH BEDRAILS UP X2. WILL CONTINUE TO MONITOR.
[2020-11-02] VITALS: BP 119/86
[2020-11-02 04:00] VITALS: BP 125/82
--- NOTE | 2020-11-02 04:00 | NUR ---
PT RESTING IN BED, NO SIGNS OF DISTRESS NOTED, RESP EVEN AND UNLABORED. PT VOICES NO NEEDS OR COMPLAINTS AT THIS TIME. CALL LIGHT IN REACH, CONTINUE TO MONITOR.
[2020-11-02 06:19] LABS: HEMATOCRIT 30.7 % (39.0-50.0); HEMOGLOBIN 9.2 g/dl (14.0-18.0); MEAN CELL VOLUME 85.8 fL CALC (80.0-100.0); MEAN CORPUSCULAR HGB 25.7 pG CALC (26.0-32.0); RED BLOOD COUNT 3.58 mill/uL (4.70-6.10); RED CELL DISTRI WIDTH 17.4 % (11.5-15.5)
--- NOTE | 2020-11-02 06:23 | NUR ---
PT GIVES INSULIN TO COVER 6 AM ACCUCHEK OF 344. PT MEDICATED FOR PAIN. JUICE DRAINS X3 DRAINED.
[2020-11-02 06:32] LABS: ANION GAP 10 (6-22 (CALC)); BUN 27 mg/dL (8-23); BUN/CREATININE RATIO 26 (12-20 (CALC)); CARBON DIOXIDE 19 mmol/l (22-30); CHLORIDE 106 mmol/l (95-108); GFR > 60 ML/MIN (>=60 (CALC)); GFR FOR AFR.AMER. > 60 ML/MIN (>=60 (CALC)); MAGNESIUM 1.6 mg/dL (1.6-2.3); SODIUM 130 mmol/l (137-146)
--- NOTE | 2020-11-02 06:54 | NUR ---
REPORT REC FROM Jo-Ann MERRILL RN
[2020-11-02 07:57] VITALS: BP 122/75
--- NOTE | 2020-11-02 07:57 | NUR ---
PT SLEEPING IN BED. AWAKENED TO COMPLETE ASSESSMENT. DROWSY APPEARANCE NOTED, PT ABLE TO ENGAGE IN SMALL CONVERSATION, ABLE TO STATE WHERE HE IS, YEAR, AND NAME/. PT VIA ROOM AIR, CURRENTLY 96%, CLEAR/DIMINISHED BREATH SOUNDS UPON AUSCULTATION. HEMATOLOGY TECHNICIAN IN PLACE, CURRENTLY READING ST WITH 1DEGREE AVB, WITH A RATE OF 107. ABD BINDER WITH DRESSING IN PLACE, DRESSING CDI; DRESSING TO BE CHANGED. X3 JUICE DRAINS; ALL CURRENTLY HAVE MINIMAL AMOUNT OF SEROSANGUINEOUS DRAINAGE IN COLLECTION BULB. HYPOACTIVE BOWEL SOUNDS X4 QUADRANTS. PT REMAINS NPO, TPN INFUSING @84 ML/HR PER APR ORDER. TRIPLE LUMEN LT IJ IN PLACE, HEALTHY AND PATENT, UNABLE TO OBTAIN BLOOD RETURN AT THIS TIME. LT BELOW THE KNEE AMPUTATION, RT PEDAL PULSE STRONG. TRACE EDEMA NOTED TO BILATERAL HANDS. ASSESSMENT COMPLETED. DISCUSSED POC; REINFORCEMENT NEEDED. CALL LIGHT WITHIN REACH.
--- NOTE | 2020-11-02 08:56 | NUR ---
DR SALAMANCA & Ivette OLMSTEAD APRN AT BEDSIDE DISCUSSING POC
[2020-11-02 10:30] VITALS: BP 130/86
--- NOTE | 2020-11-02 11:21 | NUR ---
PT SLEEPING IN BED. NO DISTRESS NOTED. CALL LIGHT WITHIN REACH.
--- NOTE | 2020-11-02 12:16 | NUR ---
PT REMEDICATED WITH PAIN MEDICATION PRIOD TO DRESSING CHANGES/JUICE REMOVAL. JUICE #2 REMOVED PER MD ORDERS BY Daniel MEANS LPN, LESS THAN 5CC OF SEROSANGUINEOUS OUTPUT. PT TOLERATED WELL, INTACT UPON REMOVAL. DRESSING CHANGE COMPLETED PER MD ORDERS. ABD BINDER REAPPLIED. CALL LIGHT WITHIN REACH.
--- NOTE | 2020-11-02 13:23 | NUR ---
DR SWIFT AT BEDSIDE DISCUSSING POC
[2020-11-02 14:36] VITALS: BP 119/84
--- NOTE | 2020-11-02 15:35 | NUR ---
RECIEVED REPORT FROM Abbey CHO RN
--- NOTE | 2020-11-02 15:37 | NUR ---
PT SLEEPING IN SEMI FOWLERS POSITION. RESPIRATIONS ARE EVEN AND UNLABORED WITH NO DISTRESS NOTED ON ROOM AIR. TELE MONITORING IN PLACE. TRIPLE LUMEN RIJ INFUSING WITH TPN AND LIPIDS PER ORDER, SITE REMAINS HEALTHY AND PATENT. MYERS CATH IN PLACE, DRAINGING WITH GRAVITY. NO SIGNS OF ANY PAINS OR DISCOMFORTS AT THIS TIME. ALL SAFETY PRECAUTIONS ARE IN PLACE WITH CALL LIGHT IN REACH. WILL CONTINUE TO MONITOR
--- NOTE | 2020-11-02 17:16 | NUR ---
CALLED FOR UPDATE, PASSCODE PROVIDED.
--- NOTE | 2020-11-02 18:30 | NUR ---
ATTEMPTED TO ASSIST PT WITH CALLING . SPEECH GARBLED AND PT UNABLE TO HOLD PHONE. PT REQUEST FOR PAIN MEDICAITON. PT INFORMED THAT PAIN MEDICATION HAS ALREADY BEEN GIVEN.
[2020-11-02 19:00] VITALS: BP 132/86
--- NOTE | 2020-11-02 20:00 | NUR ---
PT IN BED WITH HIS EYES CLOSED. MIDLINE INCISION COVERED WITH ABD PADS, DRESSING CDI. JUICE DRAIN #1-40ML SEROSANG DRAINAGE NOTED. DRAIN #3-SEROSANG - 15ML. PT HAS LIJ TRIPLE LUMEN, DRESSING CDI, ALL LUMENS FLUSH EASILY. LIPIDS AND TPN CONTINUE PER ORDER. BREATHING EVEN AND UNLABORED, SHALLOW AT TIMES DURING REST. PT REMAINS ON TELE, [address]. ASSESSMENTS COMPLETED, PLEASE SEE DOCUMENTATION. SAFETY PRECAUTIONS IN PLACE, BED IN LOW POSITION, CALL LIGHT WITHIN REACH. WILL MONITOR
[2020-11-03] VITALS: BP 135/84
--- NOTE | 2020-11-03 | NUR ---
PT CONTINUES TO RST WITH HIS EYES CLOSED. ACCU CHECK COPMPLETED, 363, 12U OF ORDERED INSULIN ADMINSTERED. NO COMPLAINTS VOICED AT THIS TIME. BREATHING EVEN AND UNLABORED. MYERS CONTINUES TO DRAIN TO GRAVITY CLEAR YELLOW URINE. SAFETY PRECAUTIONS IN PLACE, WILL MONITOR
[2020-11-03 04:00] VITALS: BP 131/82
--- NOTE | 2020-11-03 04:10 | NUR ---
PT RRESTING QUIETLY IN BED WITH HIS EYES CLOSED. BREATHING EVEN AND UNLABORED. BREATHING CAN BE SHALLOW AT TIMES. NO S/S OF DISTRESS NOTED. NO COMPLAINTS VOICED AT THIS TIME. WILL MONITOR
[2020-11-03 05:59] LABS: HEMATOCRIT 34.2 % (39.0-50.0); HEMOGLOBIN 10.3 g/dl (14.0-18.0); IMMATURE GRANULOCYTES 1.3 % (0.0-5.0); MEAN CELL VOLUME 84.4 fL CALC (80.0-100.0); MEAN CORPUSCULAR HGB 25.4 pG CALC (26.0-32.0); MEAN CORPUSCULAR HGB CONC 30.1 g/dL CAL (32.0-36.0); NEUT# 6.55 thou/uL (1.82-7.42); RED BLOOD COUNT 4.05 mill/uL (4.70-6.10); RED CELL DISTRI WIDTH 17.9 % (11.5-15.5)
[2020-11-03 06:07] LABS: ALBUMIN 1.9 g/dL (3.2-5.0); ALKALINE PHOSPHATASE 187 u/l (38-126); ANION GAP 8 (6-22 (CALC)); BILIRUBIN, TOTAL 0.2 mg/dL (0.0-1.4); BUN 29 mg/dL (8-23); BUN/CREATININE RATIO 29 (12-20 (CALC)); CARBON DIOXIDE 22 mmol/l (22-30); CHLORIDE 104 mmol/l (95-108); GFR > 60 ML/MIN (>=60 (CALC)); GFR FOR AFR.AMER. > 60 ML/MIN (>=60 (CALC)); POTASSIUM 3.7 mmol/l (3.5-5.1); SODIUM 130 mmol/l (137-146); TOTAL PROTEIN 4.4 g/dL (6.3-8.2)
[2020-11-03 06:25] LABS: SGOT/AST 16 u/l (19-48)
--- NOTE | 2020-11-03 06:45 | NUR ---
REPORT REC FROM Martha ALBARRAN LPN
[2020-11-03 07:57] VITALS: BP 133/90
--- NOTE | 2020-11-03 07:57 | NUR ---
PT SLEEPING IN BED. AWAKENED TO COMPLETE ASSESSMENT. PT LESS DROWSY COMPARED TO YESTERDAY. PT C/O OF GENERALIZED PAIN, ESPECIALLY IN ABD. CLEAR/DIMINISHED BREATH SOUNDS UPON AUSCULTATION. SURG PHYSICIAN ASST IN PLACE; WITH A READING OF ST [address] BLOCK. HYPOACTIVE BOWEL SOUNDS UPON AUSCULTATION. ABD BINDER IN PLACE, DRESSINGS REMAIN CDI. X2 JUICE DRAINS, SEROSANGUINEOUS DRAINAGE NOTED IN COLLECTION BULBS. MYERS CATHETER DRAINING VIA GRAVITY WITH CLEAR YELLOW URINE NOTED IN COLLECTION BAG. NO OTHER NEEDS AT THIS TIME. ASSESSMENT COMPLETED. DISCUSSED POC. CALL LIGHT WITHIN REACH.
--- NOTE | 2020-11-03 08:08 | NUR ---
ATTEMPT MADE TO GIVE FIRST DOSE OF ORAL CONTRAST. PT REFUSING ANY MORE STATES "I AM NOT TAKING THAT CRAP ANYMORE, I WANT ICE CHIPS". EXPLAINED TO THE PT THAT ORAL CONTRAST WAS NEEDED FOR ORDERED CT SCAN. PT CONTIUES TO REFUSE AT THIS TIME. DR SWIFT NOTIFIED. NO NEW ORDERS OBTAINED AT THIS TIME.
--- NOTE | 2020-11-03 09:35 | NUR ---
NEW IV INITIATED BY THIS CARPENTER WO[employer] TANK ERECTING X1 ATTEMPT, #20G RW , HEALTHY AND PATENT WITH GOOD BLOOD RETURN. VERBAL ORDER OBTAINED BY DR SWIFT FOR PICC LINE PLACEMENT, CENTRAL LINE TO LT IJ FOUND LEAKING, AFTER INSPECTION BY THIS [employer] ERECTING AND DR SWIFT, CENTRAL LINE TO BE REMOVED.
--- NOTE | 2020-11-03 09:53 | NUR ---
PT TAKEN DOWN TO CT IN BED, ACCOMPANIED BY STAFF. CENTRAL LINE REMOVED. INTACT UPON REMOVAL. PT TOLERATED WELL. BIOPATCH APPLIED, WITH OCCLUSIVE DRESSING. PT EDUCATED ON THE NEED TO KEEP DRESSING X24 HOURS.
--- NOTE | 2020-11-03 11:16 | NUR ---
PT ARRIVED BACK TO MS UNIT ACCOMPANIED BY RADIOLOGY STAFF. DOUBLE LUMEN PICC DILEEP. #20G FOUND DISLODGED, REMOVED AT THIS TIME. PT REPORTS TO BE FEELING BETTER THAN THIS MORNING. CALL LIGHT WITHIN REACH.
--- NOTE | 2020-11-03 11:26 | NUR ---
Luk[facility] CHO OT AT BEDSIDE
[2020-11-03 12:05] VITALS: BP 114/80
--- NOTE | 2020-11-03 14:27 | NUR ---
TPN AND LIPIDS INITIATED AT THIS TIME. NO DISTRESS NOTED. CALL LIGHT WITHIN REACH.
--- NOTE | 2020-11-03 15:02 | NUR ---
PATIENT RECEIVED FROM IMAGING AND WAS AWAKE IN SUPINE BUT REFUSING TO ENGAGE. PT ASKED ORIENTATION QUESTIONS, TO WHICH HE RESPONDED WITH A GRUMBLE, AND WHEN ASKED TO MOVE UE FOR FORWARD/ FUNCTIONAL REACHING, HE REFUSED. AM-PAC SCORE OF 10
[2020-11-03 15:42] VITALS: BP 129/81
--- NOTE | 2020-11-03 16:55 | NUR ---
CALLED [facility] AT REGARDING TRANSFER TO [facility] SPOKE TO RICKEY SHE STATED IT WILL BE APPROXIMATELY 3 HOURS FOR THE NEXT RIG TO BE HERE FOR HIM. NURSE NOTIFIED OF TIME.
--- NOTE | 2020-11-03 17:07 | NUR ---
PTS HERE TO [employer] PTS DEBIT CARD, NO WALLET IN ROOM. PT REPORTING THAT HE DID HAVE WALLET UPON ADMISSION. WALLET NOT IN ROOM, ICU OR ED. NO INTAKE REPORT SHEET FOUND.
--- NOTE | 2020-11-03 17:20 | NUR ---
Patient didn't participate with PT intervention today. Patient was in so much pain and central line was disconnected so patient had to have another IV done to administer pain medication.
--- NOTE | 2020-11-03 17:33 | NUR ---
50 CC OF SEROSANGUINEOUS OUTPUT EMPTIED FROM JUICE #1, PT MEDICATED WITH PAIN MEDICATION PER APR. TPN AND LIPIDS INFUSING AT THIS TIME THROUGH PURPLE LUEMEN, RED LUMEN REMAINS HEALTHY WITH GOOD BLOOD RETURN. NO OTHER NEEDS AT THIS TIME. CALL LIGHT WITHIN REACH.
[2020-11-03 19:00] VITALS: BP 110/73
--- NOTE | 2020-11-03 19:40 | NUR ---
PT WALLET GIVEN TO PATIENT IN ROOM, SO CALLED AND IS REQUESTING DEBIT CARD FROM WALLET, DEBIT CARD GIVEN TO ELECTROMEDICAL SERVICE ENGINEER TO WALK DOWN TO SO AT [facility]PER[facility] DELIVERY DEPARTMENT. PT INDICATED HE WANTS TO TAKE HIS WHOLE WALLET WITH HIM TO [facility] AT TIME OF TRANSFER.
--- NOTE | 2020-11-03 20:00 | NUR ---
[facility] TRANSFER TEAM ARRIVED TO TRANSFER PT TO [facility].
--- NOTE | 2020-11-03 20:30 | NUR ---
PT DISCHARGED TO [facility] TRANSPORT FOR ADMISSION TO [facility]. PT LEFT UNIT AT 2021. ALL BELONGINGS SENT WITH PT. S/O IS AWARE OF TRANSFER. REPORT GIVEN TO WILLY LOPEZ @ [facility].
== END 2020-11-03 20:22 | disposition short-term general hospital (02) | DRG 856 ==
LOC: ED 20:55 → ED-I 10-29 00:47 → ED 10-29 00:51 → ED-I 10-29 01:36 → ICU 10-29 01:36 → MS2 11-01 09:30
PROVIDERS: Family Medicine; Hospitalist; Internal Medicine; Nurse Practitioner; ADMIT Surgery; ATTEND Surgery
PROC: 06JY3ZZ Inspection of Lower Vein, Percutaneous Approach (ICD-10-PCS; 2020-10-28)
PROC: 05JY3ZZ Inspection of Upper Vein, Percutaneous Approach (ICD-10-PCS; 2020-10-28)
PROC: 0T9B70Z Drainage of Bladder with Drainage Device, Via Natural or Artificial Opening (ICD-10-PCS; 2020-10-28)
PROC: 0F900ZZ Drainage of Liver, Open Approach (ICD-10-PCS; principal; 2020-10-29)
PROC: 05H633Z Insertion of Infusion Device into Left Subclavian Vein, Percutaneous Approach (ICD-10-PCS; 2020-10-29)
PROC: 05HN33Z Insertion of Infusion Device into Left Internal Jugular Vein, Percutaneous Approach (ICD-10-PCS; 2020-10-29)
PROC: B544ZZA Ultrasonography of Left Jugular Veins, Guidance (ICD-10-PCS; 2020-10-29)
PROC: 02HV33Z Insertion of Infusion Device into Superior Vena Cava, Percutaneous Approach (ICD-10-PCS; 2020-11-03)
PROC: B518ZZA Fluoroscopy of Superior Vena Cava, Guidance (ICD-10-PCS; 2020-11-03)
DX: T81.43XA Infection following a procedure, organ and space surgical site, initial encounter (principal); A41.9 Sepsis, unspecified organism; R65.21 Severe sepsis with septic shock; K75.0 Abscess of liver; K65.0 Generalized (acute) peritonitis; E87.2 Acidosis; N17.9 Acute kidney failure, unspecified; R82.1 Myoglobinuria; E11.65 Type 2 diabetes mellitus with hyperglycemia; I10 Essential (primary) hypertension; B96.20 Unspecified Escherichia coli [E. coli] as the cause of diseases classified elsewhere; Y83.8 Other surgical procedures as the cause of abnormal reaction of the patient, or of later complication, without mention of misadventure at the time of the procedure; Z95.1 Presence of aortocoronary bypass graft; Z95.5 Presence of coronary angioplasty implant and graft; Z79.4 Long term (current) use of insulin; Z89.512 Acquired absence of left leg below knee; Z20.822 Contact with and (suspected) exposure to COVID-19
CPT/HCPCS: J3370; Q9967; S0164

== ENCOUNTER 2024-02-18 12:45 | Inpatient (IN) | payer OTHER ==
[~2024-02-18] VITALS: Ht 175.3 cm; Wt 110.0 kg
[2024-02-18] VITALS (19 sets, daily range): BP systolic 150–219; BP diastolic 72–99
[~2024-02-18 12:45] MED LIST changes: +ASCORBIC ACD1000 MG PO; +ASPIRIN81 MG PO; +CONSTULOSE10 GM/15 M; +DOXYCYCLINE100 MG PO; +GABAPENTIN100 MG PO; +KAPSPARGO SPRIN50 MG PO; +LASIX20 MG PO; +LIPITOR40 M1 PO; +LISINOPRIL10 MG PO; +MELATONIN3 MG PO; +MULTIVITAMIN1 TA1 PO; +MUPIROCIN2 % EX; +NORVASC5 M1 PO; +NOVOLIN 70/30 INNLT SC; +NOVOLIN 70/30 SC; +OMEPRAZOLE DR40 MG PO; +ONDANSETRON4 MG PO; +OXYCODONE5 M1 PO; +PROBIOTIC1 TAB PO; +SILDENAFIL50 MG PO; +TAMSULOSIN HCL0.4 MG PO; +VIBRAMYCIN100 M2 PO
--- NOTE | 2024-02-18 12:45 | NUR ---
PT TO ROOM WITH STEADY GAIT
--- NOTE | 2024-02-18 13:05 | NUR ---
R/T AT BEDSIDE, PT RESTING WITH MONITOR IN PLACE.
[2024-02-18 13:31] LABS: BASO% 0.5 % (0-3); EOS% 0.1 % (0-8); HEMATOCRIT 43.7 % (39.0-50.0); IMMATURE GRANULOCYTES 0.4 % (0.0-5.0); LYMPH% 54.8 % (15-41); MEAN CORPUSCULAR HGB 30.5 pG CALC (26.0-32.0); MEAN CORPUSCULAR HGB CONC 34.3 g/dL CAL (32.0-36.0); MONO% 6.8 % (2-13); NEUT# 8.02 thou/uL (1.82-7.42); NEUT% 37.4 % (42-76); PLATELET COUNT 103 thou/uL (130-400); RED BLOOD COUNT 4.91 mill/uL (4.70-6.10); RED CELL DISTRI WIDTH 15.1 % (11.5-15.5)
[2024-02-18 13:57] LABS: ALBUMIN 3.6 g/dL (3.2-5.0); BILIRUBIN, TOTAL 0.8 mg/dL (0.2-1.3); CREATININE 1.4 mg/dL (0.7-1.3); POTASSIUM 5.1 mmol/l (3.5-5.1); TOTAL PROTEIN 6.5 g/dL (6.3-8.2)
--- NOTE | 2024-02-18 13:59 | NUR ---
NO CHANGE IN PT STATUS, PT RESTING, MONITOR IN PLACE, PT DENIES ANY NEEDS AT THIS TIME.
[2024-02-18] MEDS ORDERED: VANCOMYCIN HCL 1 GM in SODIUM CHLORIDE 0.9% 500 ML IV ONE (14:00)
[2024-02-18] MEDS ORDERED: INSULIN REGULAR (HUMAN) 100 UNIT/ML INJ IV ONE (14:05)
[2024-02-18] MEDS ORDERED: SODIUM CHLORIDE 0.9% 1,000 ML IV ONE ×2 (14:05)
--- NOTE | 2024-02-18 14:30 | NUR ---
pt continues to improve, pt remains on monitor, iv fluids infusing w/out incident. pt denies any needs at this time
[2024-02-18] MEDS ORDERED: HYDROcodone 5 MG/Acetaminophen 325 MG/COMBO PO ONE (14:50)
--- NOTE | 2024-02-18 15:02 | NUR ---
PROVIDED PT WITH ORAL FLUIDS, ASSISTED TO URINATE. TOTAL OF 1200ML
--- NOTE | 2024-02-18 15:47 | NUR ---
PT MEDICATED PER MD ORDER, PT TOLERATES WELL. PT IN NO ACUTE DISTRESS AT THIS TIME.
[2024-02-18] MEDS ORDERED: FUROSEMIDE 40 MG/4 ML SDV IV ONE (16:05)
[2024-02-18] MEDS ORDERED: hydrALAZINE HCL 20 MG/ML VIAL(1 ML) IV ONE (16:05)
--- NOTE | 2024-02-18 16:41 | NUR ---
PT REASSESSMENT COMPLETE, PT RESTING, FLUIDS INFUSING, NO REDNESS OR IRRITATION. PT DENIES ANY NEEDS AT THIS TIME
--- NOTE | 2024-02-18 17:15 | NUR ---
PT RESTING WITH MONITOR IN PLACE, PT REMAINS STABLE. PT DENIES ANY NEEDS AT THIS TIME. IV REMAINS PATENT, NO REDNESS OR IRRITATION.
[2024-02-18] MEDS ORDERED: ACETAMINOPHEN 325 MG/TAB PO PRN (18:00)
[2024-02-18] MEDS ORDERED: SODIUM CHLORIDE 0.9% 1,000 ML IV PRN (18:00)
[2024-02-18] MEDS ORDERED: MAGNESIUM HYDROXIDE 30 ML UDC PO PRN (18:00)
--- NOTE | 2024-02-18 18:00 | NUR ---
PT REASSESSMENT COMPLETE, PT DENIES ANY CHANGE IN STATUS. PT PROVIDED WARM BLANKET, ASSISTED UP TO USE URINAL,DENIES ANY ADDITIONAL COMPLAINTS,
[2024-02-18] MEDS ORDERED: INSULIN GLARGINE 100 UNITS/ML SC SCH (18:02)
[2024-02-18] MEDS ORDERED: hydrALAZINE HCL 20 MG/ML VIAL(1 ML) IV PRN (18:05)
[2024-02-18] MEDS ORDERED: MORPHINE SULFATE 4 MG/ML VIAL IV ONE (18:35)
--- NOTE | 2024-02-18 18:48 | NUR ---
pt medicated for pain per md order
--- NOTE | 2024-02-18 19:00 | NUR ---
REPORT TO CARLA PT RESTING DENIES ANY NEEDS AT THIS TIME. PLAN OF CARE DISCUSSED WITH PT, PT DENIES ANY QUESTION UPON COMPLETION
--- NOTE | 2024-02-18 19:56 | NUR ---
REPORT TO [facility] NURSING STAFF, DENIES ANY QUESTIONS UPON COMPLETION.
--- NOTE | 2024-02-18 20:32 | NUR ---
PT TRANSPORTED TO [facility] ROOM 265 WITH TELE BOX #15
[2024-02-18] MEDS ORDERED: INSULIN LISPRO 100 UNITS/ML ML SC SCH ×2 (21:00→21:45)
[2024-02-18] MEDS ORDERED: ENOXAPARIN SODIUM 40 MG/0.4 ML SYR SC SCH (21:00)
[2024-02-18] MEDS ORDERED: oxyCODONE 10MG/APAP 325 MG 1 COMBO TAB PO PRN (21:15)
[2024-02-18] MEDS ORDERED: MORPHINE SULFATE 4 MG/ML VIAL IV PRN (21:15)
--- NOTE | 2024-02-18 21:30 | NUR ---
PATIENT ADMITTED FROM ER WITH ER STAFF IN ATTENDANCE. PATIENT ASSISTED TO BED SCALE USING HIS LLE PROSTHESIS AND THEN TO THE BED. 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 PATIENT IS ALERT AND ORIENTEDX3. PATIENT STATES THAT HE CAME TO THE ER TODAY BY EMS AFTER HIS HOME HEALTH NURSE TOLD HIM HE SHOULD COME TO THE ER YESTERDAY. PATIENT WITH WOUND TO BACK OF HIS NECK-POSSIBLE ABCESS THAT IS QUITE PAINFUL-RED, SWOLLEN WITH SMALL AMT OF SEROPURULENT DRAINAGE. PATIENT ALSO WITH CELLULITIS TO RIGHT LE-DRY SCALEY AND DISCOLORED. NO SWELLING AND FOOT IS COOL TO TOUCH WITH POOR PULSES. NO OPEN AREAS AT THIS TIME. PATIENT ALSO IS UNCONTROLLED DIAB WITH AIC OF >14. BLOOD SUGAR ON ARRIVAL TO THE UNIT IS 468-CALL PLACED TO VALERIE BRICE APRN AND RECEIVED INSULIN ORDERS. PATIENT WAS MEDICATED WITH LANTUS 20UNITS SQ AND HUMALOG 10 UNITS SQ PER ORDER. PATIENT PROVIDED WITH HEALTHY CHOICE TURKEY DINNER AND WATER TO DRINK. PATIENT STATES THAT HE LIVES WITH HIS WHO IS ALSO IN POOR HEALTH. PATIENT PCP IS AT THE [facility]. HAS HOME HEALTH BUT DOESN'T KNOW WHICH AGENCY IT IS. TELE MONITOR IN PLACE AND READING SR-90'S. IV SITE TO LAC INTACT AND HEALTHY WITH GOOD BLOOD RETURN WHEN FLUSHED. IVF NS HUNG AND INFUSING AT 100CC/HR. LUNGS ARE CLEAR. ABD LARGE WITH ACTIVE BS. LAST BM WAS TODAY BEFORE COMING TO THE HOSPITAL. DENIES DIFFICULTY WITH URINATION AND URINE OBTAINED AND SENT TO LAB. PATIENT ORIENTED TO ROOM AND SURROUNDINGS. INSTRUCTED ON USE OF NURSE CALL LIGHT AND TV REMOTE. SAFETY PRECAUTIONS REINFORCED. CALL LIGHT IN REACH. WILL CONT TO MONITOR. CALL LIGHT IN REACH. WILL CONT TO MONITOR.
[2024-02-18] MEDS ORDERED: CLARIFY DOSE PO PRN (21:45)
[2024-02-18] MEDS ORDERED: CEFEPIME HYDROCHLORIDE 1 GM in SODIUM CHLORIDE 0.9% 50 ML IV SCH (21:45)
--- NOTE | 2024-02-18 23:00 | NUR ---
SITTING UP IN BED WATCHING TV-MEDICATED FOR PAIN WITH PERCOCET 10/325MG PO FOR 8/10 NECK AND GENERALIZED PAIN. MAXIPIME HUNG AND INFUSING VIA LAC SITE. CALL LIGHT IN REACH. WILL CONT TO MONITOR.
[2024-02-19] VITALS (7 sets, daily range): BP systolic 15–205; BP diastolic 64–95
[2024-02-19 00:24] LABS: URINE BILIRUBIN - DIPSTICK Negative (NEGATIVE); URINE BLOOD DIPSTICK Negative (NEGATIVE); URINE COLOR Yellow; URINE GLUCOSE - DIPSTICK >=1000 mg/dL (NEGATIVE); URINE KETONE Trace mg/dL (NEGATIVE); URINE LEUK ESTERASE Negative (NEGATIVE); URINE NITRITE - DIPSTICK Negative (Negative); URINE PH 5.5 (4.5-8.0); URINE PROTEIN - DIPSTICK 100 mg/dL (NEG-TRACE); URINE UROBILINOGEN - DIPSTICK 0.2 E.U./dL (0.2)
[2024-02-19 00:31] LABS: URINE RBC 0-2 RBC/hpf (0-5)
--- NOTE | 2024-02-19 01:00 | NUR ---
PATIENT SITTING UP IN BED WITH EYES CLOSED. RESPS ARE EVEN AND UNLABORED. IVF PATENT AND INFUSING VIA LAC SITE. TELE MONITOR IN PLACE. CALL LIGHT IN REACH. WILL CONT TO MONITOR.
--- NOTE | 2024-02-19 05:00 | NUR ---
PATIENT RESTING IN BED WITH EYES CLOSED. RESPS ARE EVEN AND UNLABORED. TELE MONITOR IN PLACE. IVF NS PATENT AND INFUSING VIA LEFT AC SITE AT 100CC/HR. CALL LIGHT IN REACH. WILL CONT TO MONITOR.
[2024-02-19 06:03] LABS: BILIRUBIN, TOTAL 0.7 mg/dL (0.2-1.3); CREATININE 1.4 mg/dL (0.7-1.3); TOTAL PROTEIN 5.6 g/dL (6.3-8.2)
[2024-02-19 06:07] LABS: BASO% 0.5 % (0-3); EOS% 0.1 % (0-8); HEMATOCRIT 42.9 % (39.0-50.0); HEMOGLOBIN 14.3 g/dl (14.0-18.0); IMMATURE GRANULOCYTES 0.3 % (0.0-5.0); MEAN CELL VOLUME 92.1 fL CALC (80.0-100.0); MEAN CORPUSCULAR HGB 30.7 pG CALC (26.0-32.0); MEAN CORPUSCULAR HGB CONC 33.3 g/dL CAL (32.0-36.0); MONO% 6.5 % (2-13); NEUT# 6.9 thou/uL (1.82-7.42); NEUT% 33.8 % (42-76); RED BLOOD COUNT 4.66 mill/uL (4.70-6.10); RED CELL DISTRI WIDTH 15.2 % (11.5-15.5)
[2024-02-19 06:11] LABS: POTASSIUM 3.9 mmol/l (3.5-5.1)
[2024-02-19 06:37] LABS: LYMPH% 58.8 % (15-41)
--- NOTE | 2024-02-19 07:10 | NUR ---
REPORT RECEIVED FROM WILLY STEELE
[2024-02-19] MEDS ORDERED: PANTOPRAZOLE SODIUM Sesquihydr 40 MG/TAB PO SCH (09:00)
--- NOTE | 2024-02-19 09:40 | NUR ---
PT RESTING IN SEMI FOWLERS POSITION,A&O X3; PT REPORTS NECK PAIN AND REQUESTS PAIN MEDICATION, PT MEDICATED WITH PRN PERCOCET 10MG PO;ASSESSMENT COMPLETED;RESPIRATIONS EVEN AND UNLABORED ON RA,CLEAR/DIMINISHED LUNG SOUNDS NOTED;ABDOMEN DISTENDED/SOFT ON PALPATION AND ACTIVE IN ALL 4 QUADRANTS; PT LEFT BKA, RIGHT PEDAL PULSES WEAK WITH DISCOLORED LOWER LEG;EMS #18G TO LAC INFUSING NS @ 100ML/HR,SITE APPEARS HEALTHY;ACCUCHECK 331, PT COVERED WITH SLIDING SCALE INSULIN PER ORDER;TELE MONITORING #[address] READING SR;PT DENIES ANY ADDITIONAL NEEDS AND IS ENCOURAGED TO CALL FOR ASSISTANCE IF NEEDED;FALL PRECAUTIONS IN PLACE WITH BED IN THE LOWEST POSITION AND CALL LIGHT IN REACH;FREQUENT ROUNDS MADE.
[2024-02-19] MEDS ORDERED: CEFEPIME HYDROCHLORIDE 1 GM in SODIUM CHLORIDE 0.9% 50 ML IV SCH (10:00)
--- NOTE | 2024-02-19 10:19 | NUR ---
AT BEDSIDE DISCUSSING POC WITH PT.
--- NOTE | 2024-02-19 10:32 | NUR ---
AT BEDSIDE DISCUSSING POC WITH PT
[2024-02-19] MEDS ORDERED: VANCOMYCIN HCL 1 GM in SODIUM CHLORIDE 0.9% 500 ML IV SCH (11:00)
[2024-02-19] MEDS ORDERED: LIDOCAINE HCL 2% 2ML SDV IV ONE (11:04)
[2024-02-19] MEDS ORDERED: PROPOFOL 200 MG/20 ML VIAL IV ONE (11:04)
--- NOTE | 2024-02-19 11:30 | NUR ---
PT RESTING IN SEMI FOWLERS POSITION;RESPIRATIONS REMAIN EVEN AND UNLABORED ON RA;PT DENIES ANY CURRENT PAIN OR NEEDS;IV SITE TO LAC REMAINS PATENT INFUSING ABX PER ORDER;PT EDUCATED ON NPO DIET STATUS DUE TO SCHEDULED I&D THIS AFTERNOON AND VERBALIZES UNDERSTANDING.TELE MONITORING REMAINS IN PLACE;NACHO LARA ANRP NOTIFIED. ENCOURAGED PT TO CALL FOR ASSISTANCE IF NEEDED;CALL LIGHT IN REACH;FREQUENT ROUNDS MADE.
--- NOTE | 2024-02-19 11:56 | NUR ---
NEW ORDER FOR SCHEDULED HUMALOG 10UNITS OBTAINED FOR BLOOD SUGAR OF 428, CALL PLACED TO PHARMACY AND SPOKE WITH ISAURA TO GET ORDER RE-TIMED TO 1200 PT DID NOT RECEIVE SLIDING SCALE AT 1100. PER PHARMACIST " I WILL WHEN I HAVE TIME". AWAITING ORDER UPDATE FOR ADMINISTRATION.
--- NOTE | 2024-02-19 12:00 | NUR ---
INFORMED CONSENT OBTAINED FOR INCISION AND DRAINAGE OF NECK ABSCESS.
--- NOTE | 2024-02-19 13:42 | NUR ---
PT TRANSPORTED TO OR IN STABLE CONDITION VIA STRETCHER ACCOMPANIED BY SAMUEL,RN
[2024-02-19] MEDS ORDERED: LIDOCAINE HCL 1% (10MG/ML) 100 MG/10 ML MDV ONE (13:52)
[2024-02-19] MEDS ORDERED: LIDOcaine HCl 1% (Local Anesth.) 20 ML VIAL ONE (14:26)
--- NOTE | 2024-02-19 15:20 | NUR ---
PT RETURNED BACK TO MED/SURG ROOM 265 IN STABLE CONDITION VIA STRETCHER ACCOMPANIED BY SAMUEL,RN. BEDSIDE REPORT RECEIVED AT THIS TIME.PT ASSISTED TO BEDSIDE WITH X2 ASSIST;VS OBTAINED BY [facility] [employer]ORES.RESPIRATIONS EVEN AND UNLABORED ON RA;PT REPORTS NECK PAIN RATING 6/10 ON THE PAIN SCALE AND IS TO BE MEDICATED WITH PRN PERCOCET 10MG PO;TELE MONITORING IN PLACE;#18G TO LAC INFUSING NS PER ORDER.DRESSING TO NECK CDI AT THIS TIME,WILL REINFORCE NEEDED;SCD'S APPLIED AND I.S PROVIDED PER ORDER. PT EDUCATED ON USE AND DEMONSTRATED UNDERSTANDING.PT DENIES ANY ADDITIONAL NEEDS AND IS ENCOURAGED TO CALL FOR ASSISTANCE IF NEEDED;FALL PRECAUTIONS REMAIN IN PLACE WITH CALL LIGHT IN REACH;FREQUENT ROUNDS MADE.
[2024-02-19] MEDS ORDERED: INSULIN LISPRO 100 UNITS/ML ML SC SCH (17:00)
--- NOTE | 2024-02-19 19:14 | NUR ---
PATIENT OBSERVED SITTING ON THE SIDE OF THE BED. ALERT AND ORIENTED. ABLE TO MAKE NEEDS KNOWN. ASSESSMENT COMPLETE. NO DISTRESS NOTED. COMPLAINTS OF PAIN TO NECK AT TIMES WHEN MOVING AROUND. DRESSING OBSERVED INTACT. PATIENT USES URINAL. INSTRUCTED TO CALL FOR ASSISTANCE FOR SAFETY REASONS. BED IN LOW POSITION. CALL HAQ IN REACH.
[2024-02-19] MEDS ORDERED: METOPROLOL TARTRATE 50 MG/TAB PO SCH (21:00)
[2024-02-19] MEDS ORDERED: INSULIN GLARGINE 100 UNITS/ML SC SCH (21:00)
--- NOTE | 2024-02-19 23:30 | NUR ---
PATIENT REMAINS RESTING IN BED. DOES SIT ON SIDE OF THE BED TO USE URINAL. DRESSING TO BACK OF NECK DONE EARLIER IN SHIFT PER SURGEONS ORDERS. PATIENT TOLERATED WELL. WOUND BED DARK PINK WITH AREAS OF DARK BLOOD. NEW DRESSING APPLIED. REMINDED PATIENT TO USE CALL HAQ FOR ASSISTANCE FOR SAFETY REASONS. BED IN LOW POSITION. CALL HAQ IN REACH. BED ALARM ACTIVE FOR SAFETY.
[2024-02-20] VITALS (7 sets, daily range): BP systolic 138–159; BP diastolic 57–69
--- NOTE | 2024-02-20 04:36 | NUR ---
RECEIVED PRN PAIN MEDICATION PER REQUEST PER EMAR. TOLERATED WELL. OUTTER DRESSING CHANGED THIS MORNING DUE TO DRAINAGE.
[2024-02-20 05:10] LABS: ALBUMIN 2.9 g/dL (3.2-5.0); CREATININE 1.4 mg/dL (0.7-1.3); POTASSIUM 4.2 mmol/l (3.5-5.1); TOTAL PROTEIN 5.7 g/dL (6.3-8.2)
[2024-02-20 05:11] LABS: BASO% 0.4 % (0-3); EOS% 0.2 % (0-8); HEMATOCRIT 43.3 % (39.0-50.0); HEMOGLOBIN 14.4 g/dl (14.0-18.0); IMMATURE GRANULOCYTES 0.3 % (0.0-5.0); LYMPH% 61.7 % (15-41); MEAN CELL VOLUME 93.5 fL CALC (80.0-100.0); MEAN CORPUSCULAR HGB 31.1 pG CALC (26.0-32.0); MEAN CORPUSCULAR HGB CONC 33.3 g/dL CAL (32.0-36.0); MONO% 5.7 % (2-13); NEUT# 6.5 thou/uL (1.82-7.42); NEUT% 31.7 % (42-76); RED BLOOD COUNT 4.63 mill/uL (4.70-6.10); RED CELL DISTRI WIDTH 15.4 % (11.5-15.5)
--- NOTE | 2024-02-20 08:30 | NUR ---
PT RESTING IN BED. NO RESP DISTRESS NOTED. ASSESSMENT COMPLETED. DRESSING TO LEFT SIDE OF NECK CLEAN, DRY, AND INTACT. NO COMPLAINTS VOICED AT THIS TIME. CALL LIGHT WITHIN REACH. BED IN LOWEST POSITION. INSTRUCT PT TO USE CALL LIGHT IF HE NEEDED ANYTHING. PT VERBALIZED UNDERSTANDING.
[2024-02-20] MEDS ORDERED: LISINOPRIL 10 MG/TAB PO SCH (09:00)
[2024-02-20] MEDS ORDERED: ASPIRIN 81 MG/TAB PO SCH (09:00)
[2024-02-20] MEDS ORDERED: TAMSULOSIN HCL 0.4 MG CAP PO SCH (09:00)
[2024-02-20] MEDS ORDERED: amLODIPine BESYLATE 5 MG/TAB PO SCH (09:00)
[2024-02-20] MEDS ORDERED: CYCLOBENZAPRINE HCL 5 MG TAB PO PRN (10:00)
--- NOTE | 2024-02-20 11:45 | NUR ---
DRESSING REMOVED FROM LEFT SIDE OF NECK. PACKING WITH LIGHT REDISH DRAINAGE. WOUND EDGES ARE PINK WITH PINK TISSUE NOTED. USING STERILE TECHNIQUE DRESSING REPACKED WITH FLUFFY GAUZE COVERED WITH 4X4 AND SECURED WITH TAPE. PT TOLERATED PROCEDURE WITHOUT COMPLAINTS VOICED.
--- NOTE | 2024-02-20 16:49 | NUR ---
PT RESTING WITH EYES CLOSED. CHEST RISING WITH EACH BREATH. NO RESP. DISTRESS NOTED. CALL LIGHT WITHIN REACH.
[2024-02-20] MEDS ORDERED: ATORVASTATIN CALCIUM 40 MG/TAB PO SCH (17:00)
--- NOTE | 2024-02-20 19:20 | NUR ---
PATIENT OBSERVED SITTING UP ON SIDE OF BED. ALERT AND ABLE TO MAKE NEEDS KNOWN. ASSESSMENT COMPLETE. NO DISTRESS NOTED. NO COMPLAINTS VOICED AT THIS TIME. PATIENT USES URINAL TO VOID. DRESSING INTACT TO BACK OF NECK. WILL CHANGE DRESSING PER ORDERS THIS SHIFT. PATIENT DENIES NEEDING ANYTHING AT THIS TIME. BED IN LOW POSITION. CALL HAQ IN REACH.
--- NOTE | 2024-02-20 20:05 | NUR ---
SPOKE WITH SURGEON. NPO ORDER WAS PUT IN BY HIM. CLARIFIED WITH HIM. PATIENT POSSIBLE SURGERY TOMORROW PER SURGEON.
--- NOTE | 2024-02-20 21:37 | NUR ---
INFORMED PROVIDER OF PATIENT REFUSING LOVENOX SHOT TONIGHT.
[2024-02-20] MEDS ORDERED: VANCOMYCIN HCL 1 GM in SODIUM CHLORIDE 0.9% 250 ML IV SCH (23:00)
[2024-02-21 00:08] VITALS: BP 118/62
--- NOTE | 2024-02-21 00:22 | NUR ---
PATIENT REMAINS RESTING IN BED. DENIES NEEDING ANYTHING AT THIS TIME. BED REMAINS IN LOW POSITION. CALL HAQ AND BELONGINGS IN REACH.
--- NOTE | 2024-02-21 04:12 | NUR ---
PATIENT REMAINS RESTING IN BED. DENIES NEEDING ANYTHING AT THIS TIME. BED REMAINS IN LOW POSITION. CALL HAQ AND BELONGINGS IN REACH.
[2024-02-21 04:54] VITALS: BP 162/77
[2024-02-21 06:10] LABS: BASO% 0.4 % (0-3); EOS% 0.7 % (0-8); HEMATOCRIT 41.7 % (39.0-50.0); HEMOGLOBIN 13.7 g/dl (14.0-18.0); IMMATURE GRANULOCYTES 0.3 % (0.0-5.0); MEAN CORPUSCULAR HGB 29.9 pG CALC (26.0-32.0); MEAN CORPUSCULAR HGB CONC 32.9 g/dL CAL (32.0-36.0); MONO% 4.3 % (2-13); NEUT# 2.92 thou/uL (1.82-7.42); NEUT% 22.3 % (42-76); RED BLOOD COUNT 4.58 mill/uL (4.70-6.10); RED CELL DISTRI WIDTH 15.3 % (11.5-15.5)
[2024-02-21 06:35] LABS: ALBUMIN 2.6 g/dL (3.2-5.0); BILIRUBIN, TOTAL 0.6 mg/dL (0.2-1.3); CREATININE 1.3 mg/dL (0.7-1.3); MAGNESIUM 1.9 mg/dL (1.6-2.3); POTASSIUM 4.2 mmol/l (3.5-5.1); TOTAL PROTEIN 5.3 g/dL (6.3-8.2)
[2024-02-21 07:14] VITALS: BP 152/72
--- NOTE | 2024-02-21 07:24 | NUR ---
PT LYING SUPINE IN BED WITH EYES CLOSED RESTING. BREATHING UNLABORED ON ROOM AIR. TELE INTACT. URINAL AT BEDSIDE. NO SIGNS OF DISTRESS OR PAIN NOTED. BED IN LOWEST POSITION. PERSONAL ITEMS WELL CALL LIGHT WITHIN REACH. NO NEEDS AT THIS TIME. POC ONGOING.
[2024-02-21 10:40] VITALS: BP 127/61
[2024-02-21] MEDS ORDERED: METHOCARBAMOL500 MG PO (11:10)
--- NOTE | 2024-02-21 12:00 | NUR ---
PATIENT LYING IN BED WITH EYES CLOSED. BREATHING UNLABORED ON ROOM AIR. TELE INTACT. IV IN RFA INFUSING FLUIDS PER EMAR;SITE CLEAN AND INTACT. NO SIGNS OF DISTRESS NOTED. BED IN LOWEST POSITION. PERSONAL ITEMS WELL CALL LIGHT WITHIN REACH. POC ONGOING.
--- NOTE | 2024-02-21 15:27 | NUR ---
Discharge instructions given. Patient verbalizes understanding of same. Discharged in stable condition via Wheelchair to Home with staff. All belongings sent with pt.
== END 2024-02-21 15:27 | disposition home health service (06) | DRG 571 ==
LOC: ED 12:45 → ED-I 16:55 → ED 17:17 → MS2 17:18
PROVIDERS: Nurse Practitioner; Nurse Practitioner Family; ADMIT Internal Medicine; ATTEND Internal Medicine
PROC: 0J950ZX Drainage of Left Neck Subcutaneous Tissue and Fascia, Open Approach, Diagnostic (ICD-10-PCS; principal; 2024-02-19)
PROC: 0JB50ZZ Excision of Left Neck Subcutaneous Tissue and Fascia, Open Approach (ICD-10-PCS; 2024-02-19)
DX: L02.11 Cutaneous abscess of neck (principal); E87.1 Hypo-osmolality and hyponatremia; M60.08 Infective myositis, other site; I13.0 Hypertensive heart and chronic kidney disease with heart failure and stage 1 through stage 4 chronic kidney disease, or unspecified chronic kidney disease; L03.221 Cellulitis of neck; E11.65 Type 2 diabetes mellitus with hyperglycemia; I50.9 Heart failure, unspecified; E11.22 Type 2 diabetes mellitus with diabetic chronic kidney disease; N18.9 Chronic kidney disease, unspecified; I25.10 Atherosclerotic heart disease of native coronary artery without angina pectoris; E78.5 Hyperlipidemia, unspecified; E11.40 Type 2 diabetes mellitus with diabetic neuropathy, unspecified; E11.51 Type 2 diabetes mellitus with diabetic peripheral angiopathy without gangrene; H54.61 Unqualified visual loss, right eye, normal vision left eye; B95.61 Methicillin susceptible Staphylococcus aureus infection as the cause of diseases classified elsewhere; Z79.4 Long term (current) use of insulin; Z95.5 Presence of coronary angioplasty implant and graft; Z86.73 Personal history of transient ischemic attack (TIA), and cerebral infarction without residual deficits; Z89.512 Acquired absence of left leg below knee; Z95.1 Presence of aortocoronary bypass graft
CPT/HCPCS: J0360; J0692; J0696; J1650; J1815; J1940; J3370; Q9967